=== PATIENT | male | born 1990 | race Caucasian/White ===

== ENCOUNTER 2016-06-18 07:24 | Emergency (ER) | payer SELFPAY ==
--- NOTE | 2016-06-22 16:04 | ER ---
ADMIT: 06/18/2016 RM/LOC: ER [facility] MR#: [id number] [facility] [id number] [address] [place] [address] Emergency Room Report SEX: M AGE: 25 : 1990 DATE: 06/18/2016 ADDENDUM: A 25-year-old white male, coming in with right foot pain. This is metatarsal tarsal joint. He does not remember any trauma; however, with any movement or rotation, he has significant pain. Skin is warm, pink, and dry. X-ray is negative. We put him in a wood shoe, Johann wrap. We put him on prednisone 20 b.i.d. x5 days. I gave him 20 Hudson 5/325, one to two p.o. q.6 p.r.n. pain. He needs to follow up next week. Off work this week. CONDITION ON DISCHARGE: Fair. Marco Sampson MD/ dolores JOB #: [id number] CC: Marco Sampson MD, Attending Physician Liu Brown MD, Family Physician
== END 2016-06-18 09:05 | disposition home or self-care (01) ==
LOC: ER 07:24
DX: S96.211A Strain of intrinsic muscle and tendon at ankle and foot level, right foot, initial encounter (principal); S93.621A Sprain of tarsometatarsal ligament of right foot, initial encounter; X58.XXXA Exposure to other specified factors, initial encounter; Y92.69 Other specified industrial and construction area as the place of occurrence of the external cause